=== PATIENT | female | born 1995 | race African-American/Black ===

== ENCOUNTER 2017-02-13 23:35 | Emergency (ER) | payer OTHER, SELFPAY ==
[2017-02-14] MEDS ORDERED: Sodium Chloride 0.9% 1,000 ML ONE (00:07)
[2017-02-14 00:09] LABS: Bilirubin Negative (Negative); Blood, Urine Moderate (Negative); Clarity Hazy (Clear); Glucose, Urine (Dipstick) Negative (Negative); Leukocyte Trace (Negative); Nitrite Negative (Negative); Protein, Urine (Dipstick) Negative (Neg-Trace)
[2017-02-14 00:15] LABS: Bacteria/HPF 2+ HPF (None Seen); Squamous Epithelial 0-3 HPF (0-3)
[2017-02-14 00:16] LABS: Pregnancy Test - Urine (BHCG) Negative (NEGATIVE); Pregu Control Background? CLEAR/WHITE (CLR/WHITE); Pregu Control Bar Appear? YES (CONTROL BAR)
[2017-02-14] MEDS ORDERED: Ondansetron HCl/PF 4 MG/2 ML Vial ONE (00:42)
[2017-02-14 01:00] LABS: ALT (SGPT) 14 U/L (8-55); AST (SGOT) 23 U/L (5-30); Albumin 4.4 g/dL (3.5-5.0); Alkaline Phosphatase 58 U/L (40-150); Anion Gap 14 mmol/L (10-20); BUN (Urea Nitrogen) 9 mg/dL (8.4-21.0); Band 9 % (5-11); Bilirubin, Total 0.5 mg/dL (0.2-1.2); Calc. Creatinine Clearance 0 mL/min (70-130); Calcium 9.7 mg/dL (7.8-10.44); Carbon Dioxide 25 mmol/L (22-29); Chloride 104 mmol/L (98-107); Estimated GFR-MDRD 85; Globulin 3.5 g/dL (2.4-3.5); Glucose 124 mg/dL (70-105); Hemoglobin 11.2 g/dL (12.0-16.0); Hypochromia MODERATE=16-30 cells (100X) (0-5/hpf); Lymphocytes 13 % (28-48); MDiff Complete? YES; Mean Corpuscular HGB CONC 30.3 g/dL (32.0-36.0); Mean Corpuscular Hemoglobin 23.6 pg (25.0-35.0); Mean Corpuscular Volume 78.1 fl (77.0-87.0); Mean Platelet Volume 10.1 fL (7.4-10.4); Microcytosis SLIGHT = 6-15 cells (100X) (0-5/hpf); Monocytes 3 % (0-4); Neutrophil 71 % (31-61); PLT Morphology Comment Appears Adequate; Platelet Count 200 thou/uL (130-400); Polychromasia SLIGHT = 2-3 cells (100X) (0-2/hpf); Potassium 3.7 mmol/L (3.5-5.1); Protein, Total 7.9 g/dL (6.0-8.3); RBC Distribution Width 12.2 % (11.5-14.5); Reactive Lymphocytes 4 % (0-10); Red Blood Cell (RBC) Count 4.74 mill/uL (4.00-5.20); Sodium 139 mmol/L (136-145); Target Cells SLIGHT = 2-5 cells (100X) (0-1/hpf); White Blood Cell (WBC) Count 13.9 thou/uL (4.8-10.8)
[2017-02-14] MEDS ORDERED: Sodium Chloride 0.9% 100 ML ONE (01:24)
[2017-02-14] MEDS ORDERED: cefTRIAXone\\ROCEPHIN 1 GM VIAL ONE (01:24)
[2017-02-14] MEDS ORDERED: Ketorolac Tromethamine 30 MG/ML VIAL ONE (01:24)
--- NOTE | 2017-02-14 08:38 | CT ---
PRELIMINARY REPORT/[facility]/EMERGENCY AFTER HOURS PROCEDURE: Addendum created by Chirag Roque MD on 02/14/2017 1:51 AM Central Time ([place]) CRITICAL RESULT: The study was discussed on the telephone with [JUDE Frausto] on 02/14/2017 1 :46 AM CDT. The results were understood and acknowledged. Initial Report created on 02/14/2017 1:39 AM Central Time ([place]) EXAM: CT Abdomen and Pelvis With Intravenous Contrast CLINICAL HISTORY: 21 years old, female; Pain; Abdominal pain; Generalized; Patient HX: Patient presented with abdomina l pain, n/v, . starting at 1600 on 02/13/14. Hcg is negative TECHNIQUE: Axial computed tomography images of the abdomen and pelvis with intravenous contrast. This CT exam w as performed using one or more of the following dose reduction techniques: automated exposure contro l, adjustment of the mA and/or kV according to patient size, and/or use of iterative reconstruction technique. Coronal and sagittal reformatted images were created and reviewed. CONTRAST: 97 mL of ISOVUE 370 administered intravenously. COMPARISON: No relevant prior studies available. FINDINGS: Lower thorax: No acute findings. ABDOMEN: Liver: Unremarkable. No mass. Gallbladder and bile ducts: Unremarkable. No calcified stones. No ductal dilation. Pancreas: Unremarkable. No mass. No ductal dilation. Spleen: Unremarkable. No splenomegaly. Adrenals: Unremarkable. No mass. Kidneys and ureters: Unremarkable. No solid mass. No hydronephrosis. Stomach and bowel: Unremarkable. No obstruction. No mucosal thickening. Appendix: The appendix appears minimally thickened and there is minimal periappendiceal fat strandin g. This is most consistent with acute appendicitis. There is no evidence of perforation or abscess f ormation. Small appendicolith in the proximal appendix. PELVIS: Bladder: Unremarkable. No mass. Reproductive: Unremarkable as visualized. ABDOMEN and PELVIS: Intraperitoneal space: Small to moderate amount of free fluid. No free air. Bones/joints: No acute fracture. No dislocation. Soft tissues: Unremarkable. Vasculature: Unremarkable. No abdominal aortic aneurysm. Lymph nodes: Unremarkable. No enlarged lymph nodes. IMPRESSION: Findings consistent with acute appendicitis without evidence of perforation or periappendiceal absce ss. Thank you for allowing us to participate in the care of your patient. Dictated and Authenticated by: Chirag Roque MD 02/14/2017 1:39 AM Central Time ([place] \[place]\ [place]) FINAL REPORT EMERGENCY AFTER HOURS CT OF ABDOMEN AND PELVIS PERFORMED WITH CONTRAST ENHANCEMENT: Date: 02/14/17 HISTORY: Abdominal pain, nausea and vomiting. FINDINGS: The lung bases are clear. The liver, spleen, pancreas, and gallbladder regions show no focal abnormalities. Right and left adrenal glands, and right and left kidneys are normal in appearance. There is no sign ificant periaortic or mesenteric adenopathy. CT of pelvis was performed with contrast enhancement. There is some free fluid in the pelvis. The ap pendix is slightly dilated. It is fluid-filled. There is some enhancement to the wall. IMPRESSION: CT findings suggestive of early appendicitis. This report is in agreement with the preliminary report issued by [facility]. POS: [facility]
== END 2017-02-14 02:38 | disposition short-term general hospital (02) ==
LOC: NAV ERS 23:35
DX: K35.80 Unspecified acute appendicitis (principal)
CPT/HCPCS: 74177; 80053; 81003; 81015; 81025; 85025; 87040; 96361; 96365; 96375; J0696; J1885; J2405; J7050

== ENCOUNTER 2017-02-19 10:18 | Emergency (ER) | payer OTHER ==
[2017-02-19] MEDS ORDERED: Ibuprofen 800 MG TAB ONE (10:59)
== END 2017-02-19 11:04 | disposition home or self-care (01) ==
LOC: NAV ERS 10:18
DX: R51 Headache (principal); R42 Dizziness and giddiness
CPT/HCPCS: 99283

== ENCOUNTER 2019-06-17 00:25 | Emergency (ER) | payer BC, SELFPAY ==
[2019-06-17] MEDS ORDERED: Ibuprofen 200 MG TAB ONE (01:00)
[2019-06-17] MEDS ORDERED: Acetaminophen 500 MG TAB ONE (01:00)
[2019-06-17] MEDS ORDERED: AMOXicillin 250 MG CAP ONE (01:00)
== END 2019-06-17 01:05 | disposition home or self-care (01) ==
LOC: NAV ERS 00:25
DX: H66.92 Otitis media, unspecified, left ear (principal)

== ENCOUNTER 2022-05-04 09:19 | Emergency (ER) | payer BC, SELFPAY ==
[2022-05-04 10:15] LABS: #Lymphocytes 0.7 thou/uL (1.20-3.40); #Monocytes 0.4 thou/uL (0.11-0.59); #Neutrophils 8.5 thou/uL (1.40-6.50); %Basophils 0.4 % (0.0-1.0); %Eosinophils 0.2 % (0.0-10.0); %Lymphocytes 7.1 % (21.0-51.0); %Monocytes 4.6 % (0.0-10.0); %Neutrophils 87.8 % (42.0-75.0); Hemoglobin 11.1 g/dL (12.0-16.0); Mean Corpuscular Hemoglobin 23.8 pg (27.0-31.0); Mean Corpuscular Volume 82.1 fL (78.0-98.0); Mean Platelet Volume 10.3 fL (7.4-10.4); Platelet Count 259 thou/uL (130-400); RBC Distribution Width 12.4 % (11.5-14.5); Red Blood Cell (RBC) Count 4.65 mill/uL (4.20-5.40); White Blood Cell (WBC) Count 9.7 thou/uL (4.8-10.8)
[2022-05-04 10:26] LABS: ALT (SGPT) 24 U/L (8-55); AST (SGOT) 23 U/L (5-34); Albumin 4.2 g/dL (3.5-5.0); Alkaline Phosphatase 45 U/L (40-110); Anion Gap 15 mmol/L (10-20); BUN (Urea Nitrogen) 11 mg/dL (7.0-18.7); Bilirubin, Total 0.6 mg/dL (0.2-1.2); Calc. Creatinine Clearance 0 mL/min (70-130); Calcium 9.4 mg/dL (7.8-10.44); Carbon Dioxide 22 mmol/L (22-29); Chloride 105 mmol/L (98-107); Estimated GFR 88; Globulin 3.5 g/dL (2.4-3.5); Glucose 102 mg/dL (70-105); Lipase 29 U/L (8-78); Potassium 3.7 mmol/L (3.5-5.1); Protein, Total 7.7 g/dL (6.0-8.3); Sodium 138 mmol/L (136-145)
[2022-05-04 10:32] LABS: Anisocytosis SLIGHT = 6-15 cells (100X) (0-5/hpf); Hypochromia SLIGHT = 6-15 cells (100X) (0-5/hpf); MDiff Complete? YES; Platelet Morphology Comment Appears Adequate
[2022-05-04] MEDS ORDERED: Mag-Al Plus 1200 MG/1200 MG/120 MG/30 ML UDCUP ONE (10:36)
[2022-05-04] MEDS ORDERED: Lidocaine Viscous Sol 2% 15 ml UD Cup ONE (10:36)
[2022-05-04 11:25] LABS: Bilirubin Negative (Negative); Blood, Urine Trace (Negative); Clarity Slightly Cloudy (Clear); Glucose, Urine (Dipstick) Negative (Negative); Ketone, Urine Negative (Negative); Leukocyte Trace (Negative); Nitrite Positive (Negative); Protein, Urine (Dipstick) Negative (Neg-Trace); Urobilinogen 0.2 mg/dL (Less than 2)
[2022-05-04 11:34] LABS: RBC/HPF 0-3 HPF (0-3)
[2022-05-04 11:35] LABS: Bacteria/HPF 3+ HPF (None Seen)
[2022-05-04] MEDS ORDERED: Ketorolac Tromethamine 30 MG/ML VIAL ONE (11:48)
== END 2022-05-04 11:54 | disposition home or self-care (01) ==
LOC: NAV ERS 09:19
DX: K52.9 Noninfective gastroenteritis and colitis, unspecified (principal); N39.0 Urinary tract infection, site not specified
CPT/HCPCS: 80053; 81003; 81015; 83690; 85025; 87077; 87086; 87186; 96361; 96374; 96375; J1885

== ENCOUNTER 2025-07-25 13:40 | Emergency (ER) | payer BC, SELFPAY | END 2025-07-25 14:40 | disposition home or self-care (01) | LOC: NAV ERS 13:40 | DX: J06.9 Acute upper respiratory infection, unspecified (principal) | CPT/HCPCS: 87428; 99283 ==